=== PATIENT | male | born 1990 | race Caucasian/White ===

== ENCOUNTER 2020-04-30 13:50 | Emergency (ER) | payer BC, SELFPAY ==
[2020-04-30] VITALS (7 sets, daily range): BP systolic 125–168; BP diastolic 75–98; PULSE 105–128; RESP 14–20; TEMP 36.6; O2SAT 94–97; BMI 39.3
--- NOTE | 2020-04-30 14:59 | ECG_ITS ---
[facility] Test Date: 2020-04-30 Pat Name: CADENCE JOSHI Department: Room: Gender: Male Personnel Placement Specialist: CAITLIN : 1990 Requested By: Soumya Mock Order Number: [id number] Devon MD: Taniya Whitley M.D. Measurements Intervals [place] Rate: 103 P: 31 NC: 194 QRS: 57 QRSD: 74 T: 49 QT: 301 QTc: 396 Interpretive Statements SINUS TACHYCARDIA INDETERMINATE AXIS No previous ECG available for comparison Electronically Signed On 05-01-2020 5:57:06 SECURITY MESSENGER by Taniya Whitley M.D. [id number]
--- NOTE | 2020-04-30 14:59 | XR_ITS ---
WS: [id number] Exam: XR chest 1V portable [id number] Date/Time of Exam: 04/30/2020 2:59 PM Reason For Exam: chest pain No priors. Findings: The lungs are clear and fully expanded. Costophrenic angles are sharp. No infiltrates. Bronchovascula r relief appears normal. Cardiac silhouette is unremarkable. Bony elements are intact. XR/XR chest 1V portable [id number] IMPRESSION: Unremarkable chest radiograph.
--- NOTE | 2020-04-30 16:03 | W.ED.GENADLT ---
Documented by User: Arthur Barrios 05/01/20 09:52 HPI - General Adult General: Chief complaint: General Medical Stated complaint: HTN, FLUTTERING Time Seen by Provider: 04/30/20 15:47 History of Present Illness: HPI narrative: 29-year-old male complains of palpitations and sensation of impending doom. He has a fluttering in his chest and elevated blood pressure he has been monitoring at home with a wrist monitor has had heart rates in the 130s and 140s and blood pressures in the 160s over 100 range. Is been going on for the entire day today worsening but it started a couple of days ago. He denies any active chest pain at this time. He denies any use of any stimulants recreational or prescription. He does not use energy drinks or drink large amounts of caffeine or smoke. Onset (ago): day(s) Relieving factors: none Exacerbating factors: none Associated symptoms: Reports palpitations; Deny chest pain, confusion, cough, diaphoresis, decreased appetite, dyspnea, fevers/chills, headache(s), malaise, nausea, rash, seizures, short of breath, syncope, vomiting or weakness Treatments prior to arrival: none Review of Systems Const: Denies: malaise or diaphoresis ENMT: Denies: throat pain, ear or mastoid pain, nasal discharge or nasal congestion Card: Reports: palpitations; Denies: chest pain or syncope Resp: Denies: dyspnea GI: Denies: nausea or vomiting : Denies: flank pain, dysuria, urinary frequency or urinary urgency Skin/Breast: Denies: rash Neuro: Denies: headache(s) or confusion Physical Exam Const: COMMON NORMALS: no acute distress GENERAL APPEARANCE: cooperative and comfortable ORIENTATION/CONSCIOUSNESS: Yes awake, Yes oriented to person, Yes oriented to place and Yes oriented to time HENMT: COMMON NORMALS: normocephalic, atraumatic and hearing grossly normal bilaterally HEAD & SCALP: normocephalic and atraumatic Neck/C-Spine: COMMON NORMALS: no JVD Resp: COMMON NORMALS: normal respiratory effort, No retractions, No use of accessory muscles and clear to auscultation bilaterally AUSCULTATION: clear to auscultation bilaterally Cardio: COMMON NORMALS: no JVD, regular rhythm and No murmurs present (Cardio) RATE: tachycardic RHYTHM: regular rhythm GI: COMMON NORMALS: Soft to palpation and No hepatosplenomegaly present AUSCULTATION: Yes normoactive bowel sounds PALPATION: Yes Soft to palpation, No Tenderness to palpation present (GI), No Guarding due to palpation present (GI) and Yes No hepatosplenomegaly present Extremity: COMMON NORMALS: normal to inspection, capillary refill normal, no clubbing, cyanosis or edema, no calf tenderness and no pedal edema Neuro: SENSORIUM/ORIENTATION: Yes oriented to person, Yes oriented to place and Yes oriented to time Skin: COMMON NORMALS: no rashes or lesions noted GENERAL SKIN EXAM: no rashes or lesions noted Course Vital Signs: Vital signs: Vital Signs Temperature 97.8 F 04/30/20 14:10 Pulse Rate 105 H 04/30/20 19:22 Respiratory Rate 18 04/30/20 19:22 Blood Pressure 146/94 04/30/20 19:22 Pulse Oximetry 94 04/30/20 19:22 MDM - General Adult MDM Narrative: Medical decision making narrative: Patient presented with anxiety and tachycardia and high blood pressure. He was given IV and p.o. beta-yusuf will discharge home on oral beta-yusuf to start long-acting tomorrow. Follow-up with his primary care doctor within the next few days. If his any worsening or change symptoms return. Final troponin reviewed by Dr. Spaulding see his notes prior to discharge. Lab Data: Labs: Lab Results 04/30/20 04/30/20 04/30/20 Range/Units 16:43 16:43 16:43 WBC 15.7 H (4.0-10.0) 10^3/ uL RBC 5.57 H (4.1-5.3) 10^6/u L Hgb 15.6 (11.7-16.6) g/dL Hct 47.0 (42.0-52.0) % MCV 84.4 (80-94) fL MCH 28.0 (28.0-34.0) pg MCHC 33.2 (30.0-36.0) g/dL RDW 12.6 (12.1-15.1) % Plt Count 484 H (130-400) 10^3/c mm MPV 9.2 (7.4-10.4) fL Neut % (Auto) 75.2 % Lymph % (Auto) 17.6 % [place] % (Auto) 6.2 % Eos % (Auto) 0.2 % Baso % (Auto) 0.4 % Neut # (Auto) 11.80 H (1.8-7.7) 10^3/u L Lymph # (Auto) 2.8 (0.8-4.8) 10^3/u L [place] # (Auto) 1.0 H (0.2-0.9) 10^3/u L Eos # (Auto) 0.0 (0.0-0.8) 10^3/u L Baso # (Auto) 0.1 (0.0-0.1) 10^3/u L Nucleated RBC % (a uto) 0 % Nucleated RBCs # 0.0 /100WBC Sodium 138 (136-145) mmol/L Potassium 4.1 (3.5-5.1) mmol/L Chloride 101 (98-107) mmol/L Carbon Dioxide 22 (22-29) mmol/L Anion Gap 19.1 H (5-19) BUN 13 (6-20) mg/dL Creatinine 0.8 (0.7-1.2) mg/dL GFR Calculation 115.1 (90-130) mL/min Glucose 92 (65-115) mg/dL Calculated Osmolal ity 286 (285-295) mOsm/k g Calcium 10.0 (8.5-10.5) mg/dL Total Bilirubin 0.6 (0.15-1.2) mg/dL AST 20 (0-40) U/L ALT 30 (0-41) U/L Alkaline Phosphata se 90 (40-130) IU/L Creatine Kinase 148 (39-308) U/L Troponin T Baselin e 6 (0-15) ng/L Troponin T 120 [place] (0-15) ng/L Delta Troponin T (0-10) ABS# Total Protein 8.2 (6.6-8.7) g/dL Albumin 4.9 (3.5-5.2) g/dL Globulin 3.3 (1.3-4.6) g/dL Urine Color (Yellow) Urine Appearance (CLEAR) Urine pH (5-7) Ur Specific Gravit y (1.005-1.030) Urine Protein (Negative) Urine Glucose (UA) (Normal) Urine Ketones (Negative) Urine Blood (Negative) Urine Nitrate (Negative) Urine Bilirubin (Negative) Urine Urobilinogen (Negative) mg/dL Ur Leukocyte Ximena ase (Negative) Urine Opiates Scre en (Negative) ng/mL Ur Barbiturates Sc reen (Negative) ng/mL Ur Phencyclidine S crn (Negative) ng/mL Ur Amphetamines Sc reen (Negative) ng/mL U Benzodiazepines Scrn (Negative) ng/mL Urine Cocaine Scre en (Negative) ng/mL U Marijuana (THC) Screen (Negative) ng/mL 04/30/20 04/30/20 04/30/20 Range/Units 17:22 17:22 18:40 WBC (4.0-10.0) 10^3/ uL RBC (4.1-5.3) 10^6/u L Hgb (11.7-16.6) g/dL Hct (42.0-52.0) % MCV (80-94) fL MCH (28.0-34.0) pg MCHC (30.0-36.0) g/dL RDW (12.1-15.1) % Plt Count (130-400) 10^3/c mm MPV (7.4-10.4) fL Neut % (Auto) % Lymph % (Auto) % [place] % (Auto) % Eos % (Auto) % Baso % (Auto) % Neut # (Auto) (1.8-7.7) 10^3/u L Lymph # (Auto) (0.8-4.8) 10^3/u L [place] # (Auto) (0.2-0.9) 10^3/u L Eos # (Auto) (0.0-0.8) 10^3/u L Baso # (Auto) (0.0-0.1) 10^3/u L Nucleated RBC % (a uto) % Nucleated RBCs # /100WBC Sodium (136-145) mmol/L Potassium (3.5-5.1) mmol/L Chloride (98-107) mmol/L Carbon Dioxide (22-29) mmol/L Anion Gap (5-19) BUN (6-20) mg/dL Creatinine (0.7-1.2) mg/dL GFR Calculation (90-130) mL/min Glucose (65-115) mg/dL Calculated Osmolal ity (285-295) mOsm/k g Calcium (8.5-10.5) mg/dL Total Bilirubin (0.15-1.2) mg/dL AST (0-40) U/L ALT (0-41) U/L Alkaline Phosphata se (40-130) IU/L Creatine Kinase (39-308) U/L Troponin T Baselin e (0-15) ng/L Troponin T 120 [place] 6.00 (0-15) ng/L Delta Troponin T 0 (0-10) ABS# Total Protein (6.6-8.7) g/dL Albumin (3.5-5.2) g/dL Globulin (1.3-4.6) g/dL Urine Color Straw (Yellow) Urine Appearance Clear (CLEAR) Urine pH 6 (5-7) Ur Specific Gravit y 1.015 (1.005-1.030) Urine Protein Neg (Negative) Urine Glucose (UA) Norm (Normal) Urine Ketones 2+ H (Negative) Urine Blood Neg (Negative) Urine Nitrate Negative (Negative) Urine Bilirubin Neg (Negative) Urine Urobilinogen Norm (Negative) mg/dL Ur Leukocyte Ximena ase Negative (Negative) Urine Opiates Scre en Negative (Negative) ng/mL Ur Barbiturates Sc reen Negative (Negative) ng/mL Ur Phencyclidine S crn Negative (Negative) ng/mL Ur Amphetamines Sc reen Negative (Negative) ng/mL U Benzodiazepines Scrn Negative (Negative) ng/mL Urine Cocaine Scre en Negative (Negative) ng/mL U Marijuana (THC) Screen Negative (Negative) ng/mL Discharge Plan Discharge Patient Disposition: Home Condition: Stable Prescriptions: New Toprol XL 25 mg tablet extended release 24 hr 25 mg PO DAILY Qty: 30 RF: 0 No Action Prilosec OTC 20 mg Tablet,Delayed Release (Dr/Ec) 20 mg PO DAILY RF: 0 Discharge Orders: Discharge ED (Routine); Ordered 04/30/20 Ordered By: Arthur Barrios Discharge Diet: Usual diet Discharge Activity: Limit activity as instructed Patient Instructions: Hypertension (ED) Coding Level of Care Code ED Payroll Machine Operator for g Fwd Documented by User: Yudy Spaulding MD 04/30/20 19:30 HPI - General Adult General: Chief complaint: General Medical Stated complaint: HTN, FLUTTERING Time Seen by Provider: 04/30/20 15:47 Course Vital Signs: Vital signs: Vital Signs Temperature 97.8 F 04/30/20 14:10 Pulse Rate 105 H 04/30/20 19:22 Respiratory Rate 18 04/30/20 19:22 Blood Pressure 146/94 04/30/20 19:22 Pulse Oximetry 94 04/30/20 19:22 MDM - General Adult MDM Narrative: Medical decision making narrative: She presents here with hypertension along with some anxiety with high pulse. I took patient from Dr. Nath's initial and repeat troponin and other blood work are all normal. He feels improved here and will start him on Toprol. He is to follow-up his PCP in 3 to 5 days return to ER if worsening. He has no signs of pulmonary embolism or acute coronary syndrome. Lab Data: Labs: Lab Results 04/30/20 04/30/20 04/30/20 Range/Units 16:43 16:43 16:43 WBC 15.7 H (4.0-10.0) 10^3/ uL RBC 5.57 H (4.1-5.3) 10^6/u L Hgb 15.6 (11.7-16.6) g/dL Hct 47.0 (42.0-52.0) % MCV 84.4 (80-94) fL MCH 28.0 (28.0-34.0) pg MCHC 33.2 (30.0-36.0) g/dL RDW 12.6 (12.1-15.1) % Plt Count 484 H (130-400) 10^3/c mm MPV 9.2 (7.4-10.4) fL Neut % (Auto) 75.2 % Lymph % (Auto) 17.6 % [place] % (Auto) 6.2 % Eos % (Auto) 0.2 % Baso % (Auto) 0.4 % Neut # (Auto) 11.80 H (1.8-7.7) 10^3/u L Lymph # (Auto) 2.8 (0.8-4.8) 10^3/u L [place] # (Auto) 1.0 H (0.2-0.9) 10^3/u L Eos # (Auto) 0.0 (0.0-0.8) 10^3/u L Baso # (Auto) 0.1 (0.0-0.1) 10^3/u L Nucleated RBC % (a uto) 0 % Nucleated RBCs # 0.0 /100WBC Sodium 138 (136-145) mmol/L Potassium 4.1 (3.5-5.1) mmol/L Chloride 101 (98-107) mmol/L Carbon Dioxide 22 (22-29) mmol/L Anion Gap 19.1 H (5-19) BUN 13 (6-20) mg/dL Creatinine 0.8 (0.7-1.2) mg/dL GFR Calculation 115.1 (90-130) mL/min Glucose 92 (65-115) mg/dL Calculated Osmolal ity 286 (285-295) mOsm/k g Calcium 10.0 (8.5-10.5) mg/dL Total Bilirubin 0.6 (0.15-1.2) mg/dL AST 20 (0-40) U/L ALT 30 (0-41) U/L Alkaline Phosphata se 90 (40-130) IU/L Creatine Kinase 148 (39-308) U/L Troponin T Baselin e 6 (0-15) ng/L Troponin T 120 [place] (0-15) ng/L Delta Troponin T (0-10) ABS# Total Protein 8.2 (6.6-8.7) g/dL Albumin 4.9 (3.5-5.2) g/dL Globulin 3.3 (1.3-4.6) g/dL Urine Color (Yellow) Urine Appearance (CLEAR) Urine pH (5-7) Ur Specific Gravit y (1.005-1.030) Urine Protein (Negative) Urine Glucose (UA) (Normal) Urine Ketones (Negative) Urine Blood (Negative) Urine Nitrate (Negative) Urine Bilirubin (Negative) Urine Urobilinogen (Negative) mg/dL Ur Leukocyte Ximena ase (Negative) Urine Opiates Scre en (Negative) ng/mL Ur Barbiturates Sc reen (Negative) ng/mL Ur Phencyclidine S crn (Negative) ng/mL Ur Amphetamines Sc reen (Negative) ng/mL U Benzodiazepines Scrn (Negative) ng/mL Urine Cocaine Scre en (Negative) ng/mL U Marijuana (THC) Screen (Negative) ng/mL 04/30/20 04/30/20 04/30/20 Range/Units 17:22 17:22 18:40 WBC (4.0-10.0) 10^3/ uL RBC (4.1-5.3) 10^6/u L Hgb (11.7-16.6) g/dL Hct (42.0-52.0) % MCV (80-94) fL MCH (28.0-34.0) pg MCHC (30.0-36.0) g/dL RDW (12.1-15.1) % Plt Count (130-400) 10^3/c mm MPV (7.4-10.4) fL Neut % (Auto) % Lymph % (Auto) % [place] % (Auto) % Eos % (Auto) % Baso % (Auto) % Neut # (Auto) (1.8-7.7) 10^3/u L Lymph # (Auto) (0.8-4.8) 10^3/u L [place] # (Auto) (0.2-0.9) 10^3/u L Eos # (Auto) (0.0-0.8) 10^3/u L Baso # (Auto) (0.0-0.1) 10^3/u L Nucleated RBC % (a uto) % Nucleated RBCs # /100WBC Sodium (136-145) mmol/L Potassium (3.5-5.1) mmol/L Chloride (98-107) mmol/L Carbon Dioxide (22-29) mmol/L Anion Gap (5-19) BUN (6-20) mg/dL Creatinine (0.7-1.2) mg/dL GFR Calculation (90-130) mL/min Glucose (65-115) mg/dL Calculated Osmolal ity (285-295) mOsm/k g Calcium (8.5-10.5) mg/dL Total Bilirubin (0.15-1.2) mg/dL AST (0-40) U/L ALT (0-41) U/L Alkaline Phosphata se (40-130) IU/L Creatine Kinase (39-308) U/L Troponin T Baselin e (0-15) ng/L Troponin T 120 [place] 6.00 (0-15) ng/L Delta Troponin T 0 (0-10) ABS# Total Protein (6.6-8.7) g/dL Albumin (3.5-5.2) g/dL Globulin (1.3-4.6) g/dL Urine Color Straw (Yellow) Urine Appearance Clear (CLEAR) Urine pH 6 (5-7) Ur Specific Gravit y 1.015 (1.005-1.030) Urine Protein Neg (Negative) Urine Glucose (UA) Norm (Normal) Urine Ketones 2+ H (Negative) Urine Blood Neg (Negative) Urine Nitrate Negative (Negative) Urine Bilirubin Neg (Negative) Urine Urobilinogen Norm (Negative) mg/dL Ur Leukocyte Ximena ase Negative (Negative) Urine Opiates Scre en Negative (Negative) ng/mL Ur Barbiturates Sc reen Negative (Negative) ng/mL Ur Phencyclidine S crn Negative (Negative) ng/mL Ur Amphetamines Sc reen Negative (Negative) ng/mL U Benzodiazepines Scrn Negative (Negative) ng/mL Urine Cocaine Scre en Negative (Negative) ng/mL U Marijuana (THC) Screen Negative (Negative) ng/mL Discharge Plan Discharge Patient Disposition: Home Condition: Stable Prescriptions: New Toprol XL 25 mg tablet extended release 24 hr 25 mg PO DAILY Qty: 30 RF: 0 No Action Prilosec OTC 20 mg Tablet,Delayed Release (Dr/Ec) 20 mg PO DAILY RF: 0 Discharge Orders: Discharge ED (Routine); Ordered 04/30/20 Ordered By: Arthur Barrios Discharge Diet: Usual diet Discharge Activity: Limit activity as instructed Patient Instructions: Hypertension (ED) Coding Level of Care Code ED Payroll Machine Operator for Sai Harman
--- NOTE | 2020-04-30 16:10 | PC.PHAR ---
pt states he only takes prilosec otc once a day-pt states he hasnt taken his xanax 0.25mg,mirtazapine 15mg and trazodone 50mg for a long time-ext med history shows last filled on 06/13/19 and 06/27/19
--- NOTE | 2020-04-30 16:13 | PC.NURSE ---
patient denied any chest pain or shortness of breath at this time. no acute distress noted
--- NOTE | 2020-04-30 16:43 | PC.NURSE ---
patient denied any chest pain or shortness of breath at this time. no acute distress noted.
[2020-04-30] MEDS: sodium chloride 0.9% 1,000 ML 999 ML IV (16:46)
[2020-04-30 16:52] LABS: Basophils # 0.1 10^3/uL (0.0-0.1); Basophils % 0.4 %; Eosinophils % 0.2 %; Hemoglobin 15.6 g/dL (11.7-16.6); Lymphocytes # 2.8 10^3/uL (0.8-4.8); Lymphocytes % 17.6 %; Mean Corpuscular HGB Conc 33.2 g/dL (30.0-36.0); Mean Corpuscular Volume 84.4 fL (80-94); Mean Platelet Volume 9.2 fL (7.4-10.4); Monocytes % 6.2 %; Neutrophils % 75.2 %; Nucleated Red Blood Cells % 0 %; Platelet Count 484 10^3/cmm (130-400); Red Blood Count 5.57 10^6/uL (4.1-5.3); Red Cell Distribution Width 12.6 % (12.1-15.1); White Blood Count 15.7 10^3/uL (4.0-10.0)
--- NOTE | 2020-04-30 16:59 | ECG_ITS ---
[facility] Test Date: 2020-04-30 Pat Name: CADENCE JOSHI Department: Room: Gender: Male Buccaro: : 1990 Requested By: Soumya Mock Order Number: [id number] Osorio MD: Taniya Whitley M.D. Measurements Intervals [place] Rate: 118 P: 48 IN: 188 QRS: 6 QRSD: 82 T: 35 QT: 291 QTc: 409 Interpretive Statements SINUS TACHYCARDIA ABNORMAL RHYTHM ECG Compared to ECG 04/30/2020 14:07:42 Indeterminate axis no longer present Electronically Signed On 05-01-2020 6:07:37 SLAG EXPANDER by Taniya Whitley M.D. [id number]
[2020-04-30 17:10] LABS: Alanine Aminotransferase 30 U/L (0-41); Albumin Level 4.9 g/dL (3.5-5.2); Alkaline Phosphatase 90 IU/L (40-130); Anion Gap 19.1 (5-19); Aspartate Amino Transferase 20 U/L (0-40); Blood Urea Nitrogen 13 mg/dL (6-20); Carbon Dioxide 22 mmol/L (22-29); Chloride 101 mmol/L (98-107); Creatine Phosphokinase 148 U/L (39-308); Globulin 3.3 g/dL (1.3-4.6); Glomerular Filtration Rate 115.1 mL/min (90-130); Glucose 92 mg/dL (65-115); Osmolality Calculated 286 mOsm/kg (285-295); Potassium 4.1 mmol/L (3.5-5.1); Sodium 138 mmol/L (136-145); Total Bilirubin 0.6 mg/dL (0.15-1.2); Total Protein 8.2 g/dL (6.6-8.7)
[2020-04-30 17:12] LABS: Troponin(5th) Baseline 6 ng/L (0-15)
--- NOTE | 2020-04-30 17:24 | PC.NURSE ---
patient voided, urine sample sent to lab
[2020-04-30 17:36] LABS: Add Urine Microscopic? NO
[2020-04-30 17:43] LABS: Urine Appearance Clear (CLEAR); Urine Color Straw (Yellow)
[2020-04-30 17:44] LABS: Bilirubin Urine Neg (Negative); Blood Urine Neg (Negative); Glucose Urine UA Norm (Normal); Ketones Urine 2+ (Negative); Leukocyte Esterase Urine Negative (Negative); Nitrate Urine Negative (Negative); Protein Urine Neg (Negative); Specific Gravity, Urine 1.015 (1.005-1.030); Urobilinogen Urine Norm (Negative); pH Urine 6 (5-7)
[2020-04-30 17:48] LABS: Amphetamines Screen Urine Negative (Negative); Barbiturates Screen Urine Negative (Negative); Benzodiazepines Screen Urine Negative (Negative); Cocaine Screen Urine Negative (Negative); Opiate Screen Urine Negative (Negative); PCP Screen Urine Negative (Negative); THC Screen Urine Negative (Negative)
[2020-04-30] MEDS: metoprolol tartrate 25 mg Tablet PO (18:41)
[2020-04-30] MEDS: metoprolol tartrate 1 mg/1 mL SDV 5 mL 5 MG IV (18:41)
[2020-04-30 19:08] LABS: Troponin 5 2HR Delta 0 ABS# (0-10)
== END 2020-04-30 19:22 | disposition home or self-care (01) ==
PROVIDERS: Family Medicine; Physician Assistant; Emergency Provider Emergency Medicine
DX: R00.2 Palpitations (principal); I10 Essential (primary) hypertension
CPT/HCPCS: 36415; 71045; 80053; 80306; 81003; 82550; 84484; 85025; 93005; 96361; 96374; 96375; 99284; J3490; J7030